=== PATIENT | male | born 1965 ===

== ENCOUNTER 2016-10-07 16:48 | Emergency (ER) | payer SELFPAY ==
[2016-10-07 17:06] VITALS: BMI 25.1
[2016-10-07 17:08] VITALS: BP 175/116; PULSE 73; RESP 18; TEMP 97.5; O2SAT 97
[2016-10-07] MEDS ORDERED: diaZEpam 10 mg/2 ml Inj IVP ONE (17:13)
--- NOTE | 2016-10-07 17:13 | ED PDOC ---
Arrival/HPI - General Chief Complaint: Back Pain Time Seen by Provider: 10/07/16 17:09 Historian: Patient - History of Present Illness Narrative History of Present Illness (Text): 10/07/16 17:09 50yo male with no PMHx present with diffuse crampy lower back pain x 3days. States pain started when he lifted up a heavy trash on Saturday. Pain is constant , but worse with movement. States he took a Friend's Ibuprofen 600mg at 1200 today with some relieve. Denies urinary/fecal incontinence, saddle anesthesia, abdominal pain, urinary symptoms, trauma, hematuria, any other complaint. Past Medical History - Provider Review Nursing Documentation Reviewed: Yes - Infectious Disease Hx of Infectious Diseases: None - Psychiatric Hx Substance Use: No - Anesthesia Hx Anesthesia: No Hx Anesthesia Reactions: No Hx Malignant Hyperthermia: No Family/Social History - Physician Review Nursing Documentation Reviewed: Yes Family/Social History: Unknown Family HX Smoking Status: Never Smoked Hx Alcohol Use: Yes Frequency of alcohol use: Socially Hx Substance Use: No Allergies/Home Meds Allergies/Adverse Reactions: Allergies Penicillins Allergy (Verified 10/07/16 17:06) RASH Review of Systems - Physician Review All systems were reviewed & negative as marked: Yes - Review of Systems Constitutional: Normal Eyes: Normal ENT: Normal Respiratory: Normal Cardiovascular: Normal Gastrointestinal: Normal Genitourinary Male: Normal Musculoskeletal: Back Pain Skin: Normal Neurological: Normal Endocrine: Normal Hemo/Lymphatic: Normal Psychiatric: Normal Physical Exam Vital Signs Reviewed: Yes Vital Signs Temp Pulse Resp BP Pulse Ox 10/07/16 17:06 97.5 F L 73 18 175/116 H 97 Temperature: Afebrile Blood Pressure: Hypertensive Pulse: Regular Respiratory Rate: Normal Appearance: Positive for: Well-Appearing, Non-Toxic, Comfortable Pain Distress: None Mental Status: Positive for: Alert and Oriented X 3 - Systems Exam Head: Present: Atraumatic, Normocephalic Pupils: Present: PERRL Extroacular Muscles: Present: EOMI Conjunctiva: Present: Normal Mouth: Present: Moist Mucous Membranes Neck: Present: Normal Range of Motion Respiratory/Chest: Present: Clear to Auscultation, Good Air Exchange. No: Respiratory Distress, Accessory Muscle Use Cardiovascular: Present: Regular Rate and Rhythm, Normal S1, S2. No: Murmurs Abdomen: Present: Normal Bowel Sounds. No: Tenderness, Distention, Peritoneal Signs Back: Present: Midline Tenderness, Paraspinal Tenderness (Diffuse lower lumbar tenderness), Pain with Leg Raise (B/L) Upper Extremity: Present: Normal Inspection. No: Cyanosis, Edema Lower Extremity: Present: Normal Inspection. No: Edema Neurological: Present: GCS=15, CN II-XII Intact, Speech Normal Skin: Present: Warm, Dry, Normal Color. No: Rashes Psychiatric: Present: Alert, Oriented x 3, Normal Insight, Normal Concentration Medical Decision Making ED Course and Treatment: 10/07/16 18:05 Pt presented for states history. On re evaluation s/p medication he states his pain improved. He was ambulatory with normal gait in ED. He have no focal neurological deficit. His repeat BP improved. LS xray - No acute finding Result was DW the pt. He was DC home with autumn Yusuferil for MS pain. Referred to the Clinic. Advised TRT ED for any new or worsening symptoms. - RAD Interpretation Radiology Orders: 10/07/16 17:13 LS SPINE WITH OBL > 18 YRS OLD [RAD] Stat - Medication Orders Current Medication Orders: Discontinued Medications Diazepam (Valium) 5 mg IVP ONCE ONE PRN Reason: Protocol Stop: 10/07/16 17:14 Last Admin: 10/07/16 17:43 Dose: 5 MG Behavioural Document 10/07/16 17:43 FJA (Rec: 10/07/16 17:43 [id number]) Maintenance Maintenance Dose No Nonmedicinal Nonmedicinal Interventions Redirect Behavior Behavior for Medication: Anxiety Behavior Comment back pain IVP Administration Document 10/07/16 17:43 FJA (Rec: 10/07/16 17:43 [id number]) Charges for Administration # of IVP Administrations 1 Ketorolac Tromethamine (Toradol) 30 mg IVP STAT STA Stop: 10/07/16 17:13 Last Admin: 10/07/16 17:43 Dose: 30 MG IVP Administration Document 10/07/16 17:43 FJA (Rec: 10/07/16 17:43 [facility]) Charges for Administration # of IVP Administrations 1 Disposition/Present on Arrival - Present on Arrival Any Indicators Present on Arrival: No History of DVT/PE: No History of Uncontrolled Diabetes: No Urinary Catheter: No History of Decub. Ulcer: No History Surgical Site Infection Following: None - Disposition Have Diagnosis and Disposition been Completed?: Yes Diagnosis: Back pain Disposition: HOME/ ROUTINE Disposition Time: 18:40 Patient Plan: Discharge Patient Problems: Current Active Problems Problem Status Diagnosed Back pain Acute Condition: STABLE Discharge Instructions (ExitCare): Back Pain (ED) Additional Instructions: Rest and take medication as directed Do warm shower/compress to area Follow up with the clinic Return to ED for any new or worsening symptoms Prescriptions: Cyclobenzaprine [Cyclobenzaprine HCl] 10 mg PO Q8 #10 tab Naproxen [Naprosyn] 500 mg PO BID #20 tab Referrals: PCP,NO [Primary Care Provider] - Follow up with primary Forms: WORK NOTE
--- NOTE | 2016-10-08 09:41 | RAD ---
PROCEDURE: Radiographs of the Lumbar Spine. HISTORY: Back pain COMPARISON: No prior. FINDINGS: BONES: There is normal alignment of the lumbar vertebral bodies. Lumbar lordosis is maintained. Vertebral bodies are normal height. There is no acute fracture or bone destruction. There is no evidence of defect in pars interarticularis to suggest spondylolysis. Bone mineralization is normal. DISC SPACES: There is mild degenerative disc disease at L5-S1 with mild reduced disc height and facet arthropathy. The remaining disc heights are maintained. OTHER FINDINGS: There are no pathologic soft tissue calcifications. Both sacroiliac joints are normal. IMPRESSION: No acute fracture, spondylolysis or spondylolisthesis.
== END 2016-10-07 19:24 | disposition home or self-care (01) ==
LOC: ED 16:48
DX: M54.9 Dorsalgia, unspecified (principal)
CPT/HCPCS: 72110; 96374; 96375; 99282; J1885; J3360